=== PATIENT | male | born 1995 | race Caucasian/White ===

== ENCOUNTER 2018-10-15 14:41 | Emergency (ER) | payer MEDICAID ==
[2018-10-15] MEDS ORDERED: ONDANSETRON 4 MG/2 ML VIAL IVP ONE (14:46)
--- NOTE | 2018-10-15 15:50 | EDPHY ---
H & P Time Seen by Provider: 10/15/18 15:29 HPI/ROS: HPI Alcohol intoxication. Fall. Chin laceration. 22-year-old male by ambulance. Patient has been drinking alcohol in celebration of . He tripped and fell forward, striking his left anterior chin on the pavement. He sustained a deep laceration to the left chin. He otherwise has no complaints. There was no loss of consciousness. He denies any neck pain. No loss of sensation or weakness in his extremities. Denies headache. ROS: Constitutional: No fever, no chills. No weakness. Eyes: No discharge. No changes in vision. ENT: No sore throat. No nasal congestion or rhinorrhea. Respiratory: No cough. No shortness of breath. Cardiac: No chest pain, no palpitations. Gastrointestinal: No abdominal pain, no vomiting, no diarrhea. Genitourinary: No hematuria. No dysuria or increased frequency with urination. Musculoskeletal: No back pain. No neck pain. Denies extremity pain. Skin: No rashes. As above. Neurological: No headache. No focal weakness or altered sensation. Past medical history: No significant past medical history. Social history: Nonsmoker. [employer]. States he drinks alcohol socially. Physical Exam: General Appearance: Sleepy, strong odor of alcohol on his breath, slurred speech, arousable to voice. This patient is responding to questions appropriately albeit with slurred speech. This patient appears well-hydrated and well-nourished. Head: Normocephalic atraumatic. Face: Facial bones are stable on palpation. He has a 2.5 cm 3 cm full- thickness chin laceration, left anterior chin. No bony step-off or deformity noted on palpation of this area. Eyes: Pupils equal and round and reactive to light, no pallor or injection. No lid erythema or edema. ENT, Mouth: Mucous membranes moist. Dentition is intact. No malocclusion of the jaw. No tongue lacerations or abrasions. Pharynx is clear. The bilateral nasal canals are clear. No septal hematoma. Respiratory: There are no retractions, lungs are clear to auscultation with good air movement bilaterally. Chest wall is stable to AP and lateral palpation. Cardiovascular: Regular rate and rhythm. No murmur. Gastrointestinal: Abdomen is soft and nontender, no masses, bowel sounds normal. Neurological: Motor sensory function is intact. Cranial nerves are normal. Cerebellar function intact. Skin: Warm and dry, no rashes. No lacerations, abrasions or contusions. Musculoskeletal: Neck is supple and nontender. The trachea is midline. No midline cervical, thoracic, lumbar or sacral tenderness on palpation. No flank tenderness on palpation. Extremities are symmetrical, full range of motion. All joints in the bilateral upper and bilateral lower extremities range without pain or impingement. No tenderness on palpation of the long bones in the bilateral upper and bilateral lower extremities. Psychiatric: No agitation. No depression. Database: EKG: Imaging: Procedures: Procedure: Laceration repair. Please see review procedure note by physician specimen preparation assistant Hernesto Severino. Emergency department course: Triage vital signs reviewed. The patient is moderately hypertensive. He is clearly alcohol intoxicated. Wound care as noted. Will allow him to sober and he will be discharged with a sober ride when appropriate. 9:00 p.m., the patient was re-evaluated, he is up and ambulatory under his own power. He will be discharged with a friend of his who will provide a sober ride home. The patient has no complaints. There is no indication of traumatic injury or assault. He denies any other ingestion. The liability of alcohol abuse was discussed with him. Follow-up and return to emergency department precautions reviewed. All of his questions were answered. He was discharged in good condition. Differential Diagnosis: The differential diagnosis on this patient includes but is not limited to alcohol intoxication, mechanical fall, chin laceration. Traumatic brain injury , cervical spine injury, other significant traumatic injury unlikely. This represents a partial list of diagnoses considered. These considerations are based on history, physical exam, past history, reassessment and diagnostic testing. Smoking Status: Current every day smoker Constitutional: Initial Vital Signs Temperature (C) 36.6 C 10/15/18 14:46 Heart Rate 93 10/15/18 14:46 Respiratory Rate 16 10/15/18 14:46 Blood Pressure 141/88 H 10/15/18 14:46 O2 Sat (%) 96 10/15/18 14:46 O2 Delivery Mode Room Air Allergies/Adverse Reactions: No Known Allergies Allergy (Unverified 10/15/18 14:46) Home Medications: Medication Instructions Recorded NK [No Known Home Meds] 10/15/18 Medical Decision Making - Data Points Medications Given: Discontinued Medications Ondansetron HCl (Zofran) 4 mg IVP EDNOW ONE Stop: 10/15/18 14:47 Last Admin: 10/15/18 14:52 Dose: 4 mg Departure - Departure Disposition: Home, Routine, Self-Care Clinical Impression: Alcohol intoxication, Fall from ground level, Chin laceration Condition: Good Instructions: Care For Your Stitches (DC), Laceration (ED), Alcohol Intoxication (ED) Additional Instructions: Read and follow provided instructions. Sutures are to be removed in 5-7 days Do not drink alcohol. Return to the emergency department for worsening symptoms or other serious concerns. Referrals: NONE *PRIMARY CARE P,. [Primary Care Provider] - As per Instructions
[2018-10-15] MEDS ORDERED: SKIN ADHESIVE (DERMABOND) 1 EACH TP ONE (17:39)
--- NOTE | 2018-10-15 17:52 | EDPHY ---
ED Progress Note Narrative: Procedure: Laceration repair. I was requested by Dr. Brar to perform wound closure I explained the indications, risks and benefits for both laceration repair and anesthetic administration. Verbal consent was obtained from the patient . The laceration on the location was anesthetized using 0.5% bupivicaine with epinephrine . After anesthetic administered the patient was observed for a period of time and had no apparent adverse effects. The wound was cleaned, prepped, draped in normal sterile fashion and explored to its base. No foreign body seen, no foreign bodies palpated. The wound was repaired with 6 simple interrupted 6 0 Prolene sutures. The wound repair was complex. The procedure was performed by myself. Patient has been informed that scarring will occur, although efforts have been made to minimize this.
[2018-10-15 19:58] VITALS: BP 121/76
== END 2018-10-15 19:58 | disposition home or self-care (01) ==
PROC: 0HQ1XZZ Repair Face Skin, External Approach (ICD-10-PCS; principal; 2018-10-15)
DX: S01.81XA Laceration without foreign body of other part of head, initial encounter (principal); F10.920 Alcohol use, unspecified with intoxication, uncomplicated; W01.198A Fall on same level from slipping, tripping and stumbling with subsequent striking against other object, initial encounter; Y92.480 Sidewalk as the place of occurrence of the external cause; Y99.9 Unspecified external cause status
CPT/HCPCS: 96374; J2405